=== PATIENT | male | born 1945 | race Caucasian/White ===

== ENCOUNTER 2016-11-09 18:16 | Observation (INO) | payer OTHER, BC ==
[~2016-11-09] VITALS: Ht 172.7 cm; Wt 95.3 kg
[2016-11-09 19:09] LABS: HEMATOCRIT 44.2 % (38.0-50.0); MCH 31.2 PG (29.0-34.0); MCHC 34.8 G/DL (30.0-36.0); MCV 89.7 FL (86-99); MEAN PLAT.VOLUME 10.6 uM^3 (9.0-12.4); PLATELET COUNT 189 K/uL (156-360); RBC DIS.WIDTH-CV 11.9 % (11.8-14.6); RBC DIS.WIDTH-SD 38.6 % (39-53); RED BLOOD COUNT 4.93 M/uL (4.00-5.50); WHITE BLOOD COUNT 9.5 K/uL (4.1-10.2)
[2016-11-09 19:17] LABS: CHLORIDE 106 mEq/L (99-109); POTASSIUM 3.9 mEq/L (3.7-5.4); SODIUM 139 mEq/L (136-147)
[2016-11-09 19:19] LABS: GLUCOSE 116 mg/dL (70-99)
[2016-11-09 19:20] LABS: ANION GAP 11 MEQ/L (2-14)
[2016-11-09 19:23] LABS: UREA NITROGEN (BUN) 18 mg/dL (9-23)
[2016-11-09 19:24] LABS: GFR ESTIMATE (CALCULATED) > 59 mL/min/
[2016-11-09 19:30] LABS: TROP-I INTERPRETATION NEGATIVE; TROPONIN-I < 0.01 ng/mL (0.0-0.30)
[2016-11-09 20:31] LABS: MAGNESIUM 2.2 mg/dL (1.3-2.7)
[2016-11-09] MEDS ORDERED: TOPROL XL50 MG PO (20:54)
[2016-11-09] MEDS ORDERED: MAG-OXIDE400 MG PO (20:54)
[2016-11-09] MEDS ORDERED: INDAPAMIDE2.5 MG PO (20:54)
[2016-11-09] MEDS ORDERED: RANITIDINE HCL150 MG PO (20:54)
[2016-11-09] MEDS ORDERED: K-DUR20 MEQ PO (20:54)
[2016-11-09] MEDS ORDERED: CARDURA4 MG PO (20:55)
[2016-11-09] MEDS ORDERED: LO-DOSE ASPIRIN81 M2 PO (20:55)
[2016-11-09] MEDS ORDERED: SIMVASTATIN40 MG PO (20:55)
[2016-11-09] MEDS ORDERED: DIOVAN80 MG PO (20:55)
[2016-11-09] MEDS ORDERED: FISH OIL300 MG PO (20:56)
[2016-11-09 22:15] LABS: D-DIMER ELISA 0.57 mg/L FEU (< 0.57)
[2016-11-10 00:07] VITALS: BP 141/88
[2016-11-10 04:21] VITALS: BP 123/88
[2016-11-10 05:35] LABS: HEMATOCRIT 41.5 % (38.0-50.0); MCH 30.3 PG (29.0-34.0); MCV 89.2 FL (86-99); PLATELET COUNT 170 K/uL (156-360); RBC DIS.WIDTH-CV 11.9 % (11.8-14.6); RBC DIS.WIDTH-SD 38.8 % (39-53); RED BLOOD COUNT 4.65 M/uL (4.00-5.50); WHITE BLOOD COUNT 7.6 K/uL (4.1-10.2)
[2016-11-10 05:56] LABS: TROP-I INTERPRETATION NEGATIVE; TROPONIN-I < 0.01 ng/mL (0.0-0.30)
[2016-11-10 06:00] LABS: ALKALINE PHOSPHATASE 45 IU/L (3-129); ANION GAP 10 MEQ/L (2-14); CHLORIDE 105 MEQ/L (99-109); GFR ESTIMATE (CALCULATED) > 59 mL/min/; GLUCOSE 102 mg/dL (70-99); HDL CHOLESTEROL 30 MG/DL (Desirable>=40); LDL CHOLESTEROL 61 mg/dL (Desirable<100); NON-HDL CHOLESTEROL 99 mg/dL (Desirable<160); POTASSIUM 3.7 MEQ/L (3.7-5.4); SAMPLE HEMOLYSIS CHECK 0; SAMPLE ICTERIC CHECK 0; SAMPLE LIPEMIA CHECK 0; SODIUM 139 MEQ/L (136-147); TOTAL BILIRUBIN 1.3 MG/DL (0.0-1.0); TOTAL CHOLESTEROL 129 mg/dL (Desirable<200); TRIGLYCERIDES 192 MG/DL (Normal: <150); UREA NITROGEN (BUN) 15 mg/dL (9-23)
[2016-11-10 07:10] VITALS: BP 135/86
[2016-11-10 10:00] LABS: TROP-I INTERPRETATION NEGATIVE; TROPONIN-I < 0.01 ng/mL (0.0-0.30)
[2016-11-11 07:04] LABS: Estimated Average Glucose 120 mg/dL (70-123); HEMOGLOBIN A1c (GLYCOHEMOGLOB) 5.8 % HGB (Below 5.7)
== END 2016-11-10 11:23 | disposition home or self-care (01) ==
LOC: EME 18:16 → EDOF 21:43 → 5WEST 23:30
PROVIDERS: Internal Medicine
DX: R07.89 Other chest pain (principal); I49.3 Ventricular premature depolarization; R94.31 Abnormal electrocardiogram [ECG] [EKG]; I11.9 Hypertensive heart disease without heart failure; E78.5 Hyperlipidemia, unspecified; N40.0 Benign prostatic hyperplasia without lower urinary tract symptoms; D50.9 Iron deficiency anemia, unspecified; E66.9 Obesity, unspecified
CPT/HCPCS: 71020; 80048; 80053; 80061; 83036; 83735; 84484; 85027; 85379; 93005; 99281; 99285; G0378